=== PATIENT | male | born 1975 | race Caucasian/White ===

== ENCOUNTER → 2016-04-06 12:49 | Outpatient (CLI) | payer MEDICAID ==
--- NOTE | 2016-04-17 14:16 | EC ---
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 Left ventricular chamber size is within normal limits. Left ventricular systolic function is normal. Overall ejection fraction is estimated at 60%. 2. Left atrium, right atrium, and right ventricle chamber sizes are within ECHOCARDIOGRAM REPORT [id number] KALI HAN normal limits. 3. Valvular structures have normal structure and motion. 4. Doppler interrogation reveals mild tricuspid regurgitation. No other valvular insufficiency or stenosis and pulmonary systolic pressure is normal estimated at 14 mmHg. 5. No evidence of pericardial effusion or left ventricular thrombus. 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
== END | disposition home or self-care (01) ==
LOC: D.ECHO 12:49
DX: R00.0 Tachycardia, unspecified (principal)

== ENCOUNTER 2017-09-23 14:35 | Emergency (ER) | payer MEDICARE ==
[~2017-09-23] VITALS: Ht 172.7 cm; Wt 80.9 kg
[2017-09-23 14:40] VITALS: Ht 172.7 cm; Wt 80.9 kg
[2017-09-23 17:53] LABS: BASOPHILS 0.1 % (0-2); EOSINOPHILS 0.2 % (0-7); HEMATOCRIT 46.5 % (42.0-54.0); HEMOGLOBIN 15.3 g/dL (13.5-17.5); IMMATURE GRANULOCYTES 0.4 % (0-5); LYMPHOCYTES 8.7 % (15-50); MCH 31.5 pg (26.0-34.0); MCHC 32.9 g/dL (31.0-37.0); MCV 95.9 fL (80.0-100.0); MEAN PLATELET VOLUME 9.6 fL (7.4-10.4); MONOCYTES 10.3 % (2-11); NEUTROPHILS 80.3 % (40-80); PLATELET COUNT 241 10x3/uL (130-400); RBC 4.85 10x6/uL (4.20-6.10); RDW 12.9 % (11.5-14.5); WBC 12.6 10x3/uL (4.8-10.8)
[2017-09-23 17:57] LABS: ALBUMIN 3.6 g/dL (3.4-5.0); ALKALINE PHOSPHATASE 91 U/L (46-116); ALT (SGPT) 29 U/L (10-68); BILIRUBIN - TOTAL 0.42 mg/dL (0.2-1.3); CHLORIDE - SERUM 108 mmol/L (98-107); POTASSIUM - SERUM 4.5 mmol/L (3.5-5.1); PROTEIN - SERUM 7.4 g/dL (6.4-8.2); SODIUM 143 mmol/L (136-145); UREA NITROGEN 16 mg/dL (7-18)
[2017-09-23 18:11] LABS: CALC OSMOLALITY 283 mosm/kg (275-300); CALCIUM 9.1 mg/dL (8.5-10.1)
[2017-09-23 18:13] LABS: GLUCOSE 69 mg/dL (74-106)
[2017-09-23 18:14] LABS: CREATININE - SERUM < 0.6 mg/dL (0.6-1.3); eGFR NON AFRICAN AMERICAN > 90 mL/min (90-120)
[2017-09-23] MEDS ORDERED: VIBRAMYCIN 100100 MG PO (19:46)
[2017-09-23] MEDS ORDERED: NORCO 7.5/325 T1 TA1 PO (19:51)
[2017-09-23] MEDS ORDERED: CYCLOBENZAPRINE10 MG PO (19:51)
[2017-09-23] MEDS ORDERED: MUPIROCIN22 GM TOPICAL (19:51)
[2017-09-23 20:34] VITALS: BP 130/84
== END 2017-09-23 20:39 | disposition home or self-care (01) ==
LOC: D.ER 14:35
PROVIDERS: Family Medicine
DX: S81.012A Laceration without foreign body, left knee, initial encounter (principal); V29.9XXA Motorcycle rider (driver) (passenger) injured in unspecified traffic accident, initial encounter; Y93.89 Activity, other specified; Y92.410 Unspecified street and highway as the place of occurrence of the external cause; S06.0X1A Concussion with loss of consciousness of 30 minutes or less, initial encounter; S40.812A Abrasion of left upper arm, initial encounter

== ENCOUNTER 2018-12-23 08:59 | Emergency (ER) | payer OTHER ==
[~2018-12-23] VITALS: Ht 172.7 cm; Wt 80.9 kg
[~2018-12-23 08:59] MED LIST: CYCLOBENZAPRINE10 MG PO; MUPIROCIN22 GM TOPICAL; NORCO 7.5/325 T1 TA1 PO; VIBRAMYCIN 100100 MG PO
[2018-12-23 09:03] VITALS: Ht 172.7 cm; Wt 80.9 kg
[2018-12-23] MEDS ORDERED: TENORMIN25 MG PO (09:06)
[2018-12-23] MEDS ORDERED: CARAFATE1 G PO (09:07)
[2018-12-23] MEDS ORDERED: ULTRAM50 MG PO (09:07)
[2018-12-23] MEDS ORDERED: AMIODARONE (09:08)
[2018-12-23 09:58] LABS: ALBUMIN 4.1 g/dL (3.4-5.0); ANION GAP 18.5 mmol/L (8-16); BILIRUBIN - TOTAL 1.08 mg/dL (0.2-1.3); CALCIUM 9.7 mg/dL (8.5-10.1); CREATININE - SERUM 1.2 mg/dL (0.6-1.3); POTASSIUM - SERUM 4.5 mmol/L (3.5-5.1); PROTEIN - SERUM 8.9 g/dL (6.4-8.2)
[2018-12-23 10:04] LABS: BASOPHILS 0 % (0-2); EOSINOPHILS 1.3 % (0-7); HEMATOCRIT 52.1 % (42.0-54.0); HEMOGLOBIN 17.5 g/dL (13.5-17.5); IMMATURE GRANULOCYTES 0.5 % (0-5); LYMPHOCYTES 9.6 % (15-50); MCH 32.6 pg (26.0-34.0); MCHC 33.6 g/dL (31.0-37.0); MCV 97.2 fL (80.0-100.0); MEAN PLATELET VOLUME 9.6 fL (7.4-10.4); MONOCYTES 13.8 % (2-11); NEUTROPHILS 74.8 % (40-80); RBC 5.36 10x6/uL (4.20-6.10); RDW 12.6 % (11.5-14.5); WBC 12.7 10x3/uL (4.8-10.8)
[2018-12-23 10:07] LABS: PLATELET COUNT 315 10x3/uL (130-400)
[2018-12-23] MEDS ORDERED: BACLOFEN10 MG (10:21)
[2018-12-23] MEDS ORDERED: SEROQUEL25 MG (10:21)
[2018-12-23 11:29] LABS: APPEARANCE CLEAR (CLEAR); BILIRUBIN NEGATIVE (NEGATIVE); COLOR YELLOW (YELLOW); GLUCOSE NEGATIVE (NEGATIVE); KETONE SMALL mg/dL (NEGATIVE); NITRITE NEGATIVE (NEGATIVE); PROTEIN NEGATIVE (NEGATIVE); SPECIFIC GRAVITY 1.015 (1.005-1.020); UROBILINOGEN NORMAL (NORMAL)
[2018-12-23] MEDS ORDERED: ZOFRAN ODT4 MG/UDTAB PO (11:44)
[2018-12-23 12:11] VITALS: BP 140/64
== END 2018-12-23 12:11 | disposition home or self-care (01) ==
LOC: D.ER 08:59
PROVIDERS: Emergency Medicine
DX: K52.9 Noninfective gastroenteritis and colitis, unspecified (principal); I10 Essential (primary) hypertension